=== PATIENT | female | born 1950 | race Hispanic/Latino ===

== ENCOUNTER 2018-01-06 09:44 | Outpatient (CLI) | payer MEDICARE ==
--- NOTE | 2018-01-06 10:38 | RAD ---
TWO VIEW CHEST: Indication: Cough and fever. FINDINGS: No consolidation, effusion, or pneumothorax. Cardiac silhouette is within normal limits of size. Ther e are metallic clips in the right upper abdomen. IMPRESSION: No focal consolidation. POS: [id number]
== END 2018-01-06 09:45 | disposition home or self-care (01) ==
LOC: SCSRAD 09:44
PROVIDERS: ATTEND Family Medicine
DX: R05 Cough (principal)
CPT/HCPCS: 71046